=== PATIENT | female | born 1965 | race Caucasian/White ===

== ENCOUNTER 2024-10-23 10:27 | Emergency (ER) | payer OTHER, SELFPAY ==
[2024-10-23 10:33] VITALS: BP 146/98; PULSE 76; TEMP 36.4; O2SAT 97; BMI 30.7
--- NOTE | 2024-10-23 10:36 | ECG_ITS ---
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 Measurements Intervals [place] Rate: 67 P: 60 MA: 164 QRS: 76 QRSD: 100 T: 66 QT: 378 QTc: 394 Interpretive Statements 1100 Sinus rhythm 9110 normal ECG No previous ECG available for comparison Electronically Signed On 10-24-2024 6:57:51 EDT by MARTHA ALFRED M.D.
[2024-10-23 10:58] VITALS: PULSE 67
[2024-10-23 11:00] VITALS: PULSE 71; O2SAT 94
[2024-10-23 11:03] LABS: Basophils Percent Auto 0.3 % (0.2-2.0); Eosinophils Absolute Auto 0.1 10^3/uL (0.0-0.7); Hematocrit 42.1 % (36.0-48.0); Hemoglobin 13.9 g/dL (12.0-16.0); Immature Granulocytes Abs Auto 0.02 10^3/uL (0.00-0.03); Immature Granulocytes Pct Auto 0.2 % (0.0-0.5); Lymphocytes Absolute Auto 1.7 10^3/uL (1.2-3.8); Lymphocytes Percent Auto 15.2 % (20.5-60.0); Mean Corpuscular Hemoglobin 29.9 pg (26.7-34.0); Mean Corpuscular Volume 90.5 fL (81.0-99.0); Mean Platelet Volume 9.5 fL (9.5-13.5); Monocytes Absolute Auto 0.8 10^3/uL (0.3-0.8); Neutrophils Absolute Auto 8.8 10^3/uL (1.4-6.5); Neutrophils Percent Auto 76.3 % (43.0-75.0); Platelet Count 250 10^3/uL (150-450); Red Blood Count 4.65 10^6/uL (4.20-5.40); Red Cell Distribution Width 12.5 % (11.0-15.0); White Blood Count 11.5 10^3/uL (4.0-11.0)
[2024-10-23] MEDS: KETOROLAC TROMETHAMINE 30 MG/ML VIAL 15 MG IVP (11:03)
[2024-10-23 11:18] LABS: D Dimer 0.46 mg/L FEU (<=0.59)
[2024-10-23 11:26] LABS: Alanine Aminotransferase 15 U/L (14-59); Albumin Globulin Ratio 0.9; Albumin Level 3.4 g/dL (3.4-5.0); Alkaline Phosphatase 92 U/L (46-116); Anion Gap 10.7; Aspartate Amino Transferase 17 U/L (15-37); BUN Creatinine Ratio 23.2; Bilirubin Total 0.5 mg/dL (0.2-1.0); Calcium 10.2 mg/dL (8.5-10.1); Carbon Dioxide 29.5 mmol/L (21.0-32.0); Chloride 103 mmol/L (98-107); Estimated GFR (African America >60 (>=60 mL/min/1.73m^2); Estimated GFR (Non-African Ame >60 (>=60 mL/min/1.73m^2); Glucose 92 mg/dL (74-106); Potassium 3.2 mmol/L (3.5-5.1); Sodium 140 mmol/L (136-145); Total Protein 7.4 g/dL (6.4-8.2); Troponin I High Sensitivity 4.5 pg/mL (4.0-51.3)
[2024-10-23 11:27] VITALS: BP 112/87; PULSE 72; O2SAT 93
[2024-10-23 11:30] VITALS: BP 121/77; PULSE 67; O2SAT 93
--- NOTE | 2024-10-23 11:52 | ED.GENADUL1 ---
HPI HPI - General Adult General Chief complaint: Shortness of Breath/Dyspnea Stated complaint: BACK PAIN W SOB Time Seen by Provider: 10/23/24 10:36 Source: patient Mode of arrival: walk-in Limitations: no limitations History of Present Illness HPI narrative: The patient has come to the ER with a left-sided posterior chest wall pain that has been on at least for the last 5 days, patient denies any fall or trauma she mentioned that the pain started all of a sudden, she does have a history of COPD but she denies any increasing cough or any increase in phlegm production, she also denies any difficulty breathing although the pain comes whenever she take a deep breath Patient presented to urgent care and they told her that she had to come to the ER to get evaluated for PE although the patient did not have any history of immobilization or any recent surgery or any history of DVT Related Data Home Medications ?Medication ?Instructions ?Recorded ?Confirmed levothyroxine 88 mcg tablet 88 mcg PO DAILY 10/23/24 10/23/24 spironolactone 25 1 tab PO DAILY 10/23/24 10/23/24 mg-hydrochlorothiazide 25 mg tablet Previous Rx's ?Medication ?Instructions ?Recorded diclofenac sodium 75 mg 75 mg PO BID PRN pain #14 tabs 10/23/24 tablet,delayed release orphenadrine citrate 100 mg 100 mg PO BID PRN muscle spasm #20 10/23/24 tablet,extended release tabs Allergies Allergy/AdvReac Type Severity Reaction Status Date / Time No Known Drug Allergies Allergy Verified 10/23/24 10:35 Opioid HPI Opioid Management Most Recent Opioid Data: Last SEP Pain Assessment 10/23/24 11:03 Review of Systems ROS Status of ROS 10 or more systems reviewed and unremarkable except as noted in history and below PFSH PFSH Social History Little interest or pleasure in doing things: not at all Feeling down, depressed, or hopeless: not at all Exam Narrative Exam Narrative: Nurses notes and vital signs reviewed and patient is not hypoxic. General: Well-appearing and in no apparent distress. Skin: Warm, dry, no pallor noted. No rash. Head: Normocephalic, atraumatic. Neck: Supple, non-tender. Cardiovascular: Regular Rate and Rhythm without murmur, gallop or rub. Respiratory: No accessory muscle use or respiratory distress. Lungs are clear to auscultation, no wheezing, rales or rhonchi Chest Wall: Tenderness upon palpation of the left scapular area Back: No midline thoracic or lumbar vertebral tenderness. No CVA tenderness Musculoskeletal: normal ROM, no calf or popliteal tenderness, no lower extremity edema/swelling GI: Abdomen is soft, non-distended. Normal bowel sounds. No masses appreciated. No tenderness to palpation. No rebound, guarding, or rigidity noted. Neurological: A&O x4. No cranial nerve dysfunction observed. Constitutional Vital Signs, click to edit/add: Last Vital Signs Temp 97.6 F 10/23/24 10:33 Pulse 67 10/23/24 11:30 Resp 14 10/23/24 11:30 BP 121/77 10/23/24 11:30 Pulse Ox 93 L 10/23/24 11:30 O2 Del Method Room Air 10/23/24 10:33 Course Vital Signs Vital signs: Vital Signs Temperature 97.6 F 10/23/24 10:33 Pulse Rate 76 10/23/24 10:33 Respiratory Rate 18 10/23/24 10:33 Blood Pressure 146/98 H 10/23/24 10:33 Pulse Oximetry 97 10/23/24 10:33 Oxygen Delivery Method Room Air 10/23/24 10:33 Temperature 97.6 F 10/23/24 10:33 Pulse Rate 67 10/23/24 11:30 Respiratory Rate 14 10/23/24 11:30 Blood Pressure 121/77 10/23/24 11:30 Pulse Oximetry 93 L 10/23/24 11:30 Oxygen Delivery Method Room Air 10/23/24 10:33 Medical Decision Making [facility] Narrative Medical decision making narrative: The patient EKG in the ER showing sinus rhythm with a heart rate of [address] elevation or depression Patient chest x-ray showed no acute pathology The patient CBC and chemistry showed no acute significant pathology except for mild hypokalemia and the patient was instructed about intake of potassium rich diet The patient D-dimer is not elevated She was treated in the ER with the Toradol in the ER discharged home with Voltaren and Norflex instructed to come back in case of any worsening of symptoms Right now the patient pain mostly secondary to muscular pain The patient is to follow up with primary care physician in next 2-3 days or to return to the emergency department should any of the signs or symptoms worsen or new symptoms develop. The patient agrees with the following Diagnosis and Treatment plan and the patient will be discharged home. Lab Data Labs: Lab Results 10/23/24 Range/Units 10:53 WBC 11.5 H (4.0-11.0) 10^3/uL RBC 4.65 (4.20-5.40) 10^6/uL Hgb 13.9 (12.0-16.0) g/dL Hct 42.1 (36.0-48.0) % MCV 90.5 (81.0-99.0) fL MCH 29.9 (26.7-34.0) pg MCHC 33.0 (29.9-35.2) g/dL RDW 12.5 (11.0-15.0) % Plt Count 250 (150-450) 10^3/uL MPV 9.5 (9.5-13.5) fL Neut % (Auto) 76.3 H (43.0-75.0) % Lymph % (Auto) 15.2 L (20.5-60.0) % Pender % (Auto) 7.0 (1.7-12.0) % Eos % (Auto) 1.0 (0.9-7.0) % Baso % (Auto) 0.3 (0.2-2.0) % Neut # (Auto) 8.8 H (1.4-6.5) 10^3/uL Lymph # (Auto) 1.7 (1.2-3.8) 10^3/uL Pender # (Auto) 0.8 (0.3-0.8) 10^3/uL Eos # (Auto) 0.1 (0.0-0.7) 10^3/uL Baso # (Auto) 0.0 (0.0-0.1) 10^3/uL Abs Immat Gran (auto) 0.02 (0.00-0.03) 10^3/uL Imm/Tot Granulo (auto) 0.2 (0.0-0.5) % D-Dimer 0.46 (<=0.59) mg/L FEU Sodium 140 (136-145) mmol/L Potassium 3.2 L (3.5-5.1) mmol/L Chloride 103 (98-107) mmol/L Carbon Dioxide 29.5 (21.0-32.0) mmol/L Anion Gap 10.7 BUN 19.0 H (7.0-18.0) mg/dL Creatinine 0.82 (0.55-1.02) mg/dL Est GFR ( Amer) >60 (>=60 mL/min/1.73m^2) Est GFR (Non-Af Amer) >60 (>=60 mL/min/1.73m^2) BUN/Creatinine Ratio 23.2 Glucose 92 (74-106) mg/dL Calcium 10.2 H (8.5-10.1) mg/dL Total Bilirubin 0.5 (0.2-1.0) mg/dL AST 17 (15-37) U/L ALT 15 (14-59) U/L Alkaline Phosphatase 92 (46-116) U/L Troponin I High Sens 4.5 (4.0-51.3) pg/mL Total Protein 7.4 (6.4-8.2) g/dL Albumin 3.4 (3.4-5.0) g/dL Globulin 4.0 g/dL Albumin/Globulin Ratio 0.9 Discharge Plan Discharge Chief Complaint: Shortness of Breath/Dyspnea Clinical Impression: Acute chest wall pain, Hypokalemia Patient Disposition: Home, Self-Care Time of Disposition Decision: 11:53 Condition: Good Prescriptions / Home Meds: New diclofenac sodium 75 mg tablet,delayed release (DR/EC) 75 mg PO BID PRN (Reason: pain) Qty: 14 0RF orphenadrine citrate 100 mg tablet extended release 100 mg PO BID PRN (Reason: muscle spasm) Qty: 20 0RF No Action levothyroxine 88 mcg tablet 88 mcg PO DAILY spironolacton-hydrochlorothiaz 25-25 mg tablet 1 tab PO DAILY Print Language: Mongolian Instructions: Chest Wall Pain (ED) Referrals: YANG SLAUGHTER [Primary Care Provider] - 1 week Discharge Date/Time: 10/23/24 12:04
== END 2024-10-23 12:04 | disposition home or self-care (01) ==
PROVIDERS: Emergency Provider Emergency Medicine
DX: R07.89 Other chest pain (principal); E87.6 Hypokalemia
CPT/HCPCS: 36415; 71045; 80053; 84484; 85025; 85378; 93005; 96374; 99285; J1885